=== PATIENT | female | born 1965 | race Caucasian/White ===

== ENCOUNTER 2020-04-02 09:39 | Day surgery (SDC) | payer OTHER | END 2020-04-02 16:00 | disposition home or self-care (01) | LOC: AMB-ENDOS 09:39 | PROVIDERS: ATTEND Surgery | DX: K62.89 Other specified diseases of anus and rectum (principal); K57.30 Diverticulosis of large intestine without perforation or abscess without bleeding; K64.8 Other hemorrhoids ==